=== PATIENT | female | born 1945 | race Native Hawaiian/Other Pacific Islander ===

== ENCOUNTER 2016-06-12 12:34 | Outpatient (CLI) | payer OTHER | END 2016-06-12 20:11 | disposition home or self-care (01) | LOC: RAD 12:34 | DX: M25.561 Pain in right knee (principal) ==

== ENCOUNTER 2016-07-17 08:41 | Outpatient (CLI) | payer OTHER ==
[2016-07-17 08:56] LABS: PLATELET COUNT 233 K/uL (152-353)
[2016-07-17 09:14] LABS: POTASSIUM 3.8 mmol/L (3.6-5.2); SODIUM 140 mmol/L (136-145)
== END 2016-07-17 19:44 | disposition home or self-care (01) ==
LOC: LABW 08:41
PROVIDERS: Orthopaedic Surgery Sports Medicine
DX: Z01.812 Encounter for preprocedural laboratory examination (principal); M17.11 Unilateral primary osteoarthritis, right knee; R73.09 Other abnormal glucose
CPT/HCPCS: 36415; 80053; 85027

== ENCOUNTER 2016-07-31 12:24 | Outpatient (CLI) | payer OTHER | END 2016-07-31 19:27 | disposition home or self-care (01) | LOC: US 12:24 | DX: M17.11 Unilateral primary osteoarthritis, right knee (principal); R60.0 Localized edema ==

== ENCOUNTER 2017-01-22 13:08 | Outpatient (CLI) | payer OTHER ==
[2017-02-01] MEDS ORDERED: METFORMIN HCL500 M1 PO (10:58)
[2017-02-01] MEDS ORDERED: LYRICA75 MG OR (10:58)
[2017-02-01] MEDS ORDERED: MACROBID100 MG OR (10:59)
[2017-02-01] MEDS ORDERED: LISI5TAB10 PO (10:59)
[2017-02-01] MEDS ORDERED: CLON0.5T36 PO (11:00)
== END 2017-01-22 14:10 | disposition home or self-care (01) ==
LOC: RAD 13:08
DX: M17.11 Unilateral primary osteoarthritis, right knee (principal)

== ENCOUNTER 2017-03-05 12:42 | Outpatient (CLI) | payer OTHER ==
[~2017-03-05 12:42] MED LIST: CLON0.5T36 PO; LISI5TAB10 PO; LYRICA75 MG OR; MACROBID100 MG OR; METFORMIN HCL500 M1 PO
== END 2017-03-05 19:17 | disposition home or self-care (01) ==
LOC: RAD 12:42
DX: M25.561 Pain in right knee (principal)

== ENCOUNTER 2017-03-19 12:24 | Outpatient (CLI) | payer OTHER | END 2017-03-19 13:30 | disposition home or self-care (01) | LOC: RAD 12:24 | DX: M25.561 Pain in right knee (principal) ==

== ENCOUNTER 2021-03-11 11:57 | Outpatient (CLI) | payer OTHER | END 2021-03-11 19:37 | disposition home or self-care (01) | LOC: LAB 11:57 | PROVIDERS: ATTEND Nurse Practitioner Family | DX: T83.098A Other mechanical complication of other urinary catheter, initial encounter (principal); R82.998 Other abnormal findings in urine | CPT/HCPCS: 81000; 87077; 87086; 87088; 87186 ==

== ENCOUNTER 2021-05-31 11:28 | Inpatient (IN) | payer OTHER | END 2021-06-07 08:54 | disposition still patient (30) | LOC: PAVC 11:28 | PROVIDERS: ADMIT Internal Medicine; ATTEND Internal Medicine | DX: N39.0 Urinary tract infection, site not specified (principal); A41.51 Sepsis due to Escherichia coli [E. coli]; N18.32 Chronic kidney disease, stage 3b; M62.81 Muscle weakness (generalized); Z74.1 Need for assistance with personal care; R26.81 Unsteadiness on feet; R48.8 Other symbolic dysfunctions | CPT/HCPCS: 80053; 80061; 82306; 82607; 82728; 83036; 83540; 84443; 85027; 87081 ==

== ENCOUNTER 2021-06-07 11:33 | Inpatient (IN) | payer OTHER | END 2021-06-27 10:00 | disposition home or self-care (01) | LOC: PAVC 11:33 | PROVIDERS: ADMIT Internal Medicine; ATTEND Internal Medicine | DX: N39.0 Urinary tract infection, site not specified (principal); A41.51 Sepsis due to Escherichia coli [E. coli]; N18.32 Chronic kidney disease, stage 3b; M62.81 Muscle weakness (generalized); Z74.1 Need for assistance with personal care; R26.81 Unsteadiness on feet; R48.8 Other symbolic dysfunctions ==